=== PATIENT | male | born 1955 | race Caucasian/White ===

== ENCOUNTER 2024-01-14 16:40 | Inpatient (IN) ==
[2024-01-14] MEDS: Vancomycin 1,000 MG in NS 0.9% 250 ml 250 ML IVPB ONE (17:18)
[2024-01-14 17:19] LABS: Hematocrit 36.9 % (38-53); Hemoglobin 12.9 g/dL (13.2-16.3); Mean Corpuscular Hemoglobin 34.6 pg (27-33); Mean Corpuscular Hgb Conc 34.9 g/dL (31-36); Mean Corpuscular Volume 99.1 fL (80-97); Mean Platelet Volume 7.8 fL (7.5-11.2); Platelet Count 158 10^3/uL (150-450); Red Blood Count 3.72 10^6/uL (4.06-5.63); Red Cell Distribution Width 13.3 % (12-17)
[2024-01-14] MEDS: Lactated Ringers SEPSIS* BAG 2,180 ML IV ONE (17:22)
[2024-01-14] MEDS: Morphine 4 MG/ML VIAL (1 ml) IV ONE (17:23)
[2024-01-14] MEDS: Acetaminophen IV 1 GM/100ML 1,000 MG/100 ML BAG IV ONE (17:25)
[2024-01-14] MEDS: Piperacillin/Tazobac 3.375 BAG 3.375 GM/100 ML BAG IV ONE (17:30)
[2024-01-14 17:41] LABS: Activated Partial Thrombo Time 27.9 seconds (26.0-38.0); INR 1.23 (0.85-1.14)
[2024-01-14 17:46] LABS: High Sens Troponin Baseline 23 pg/mL (<20)
[2024-01-14 18:05] LABS: ALT 19 U/L (7-52); AST 17 U/L (13-39); Albumin 2.9 g/dL (3.2-5.2); Albumin/Globulin Ratio 0.3 (1-3); Alkaline Phosphatase 61 U/L (35-149); Anion Gap 3 mmol/L (2-16); Blood Urea Nitrogen 25 mg/dL (6-24); C Reactive Protein 381.12 mg/L (<8.01); CO2 Carbon Dioxide 30 mmol/L (22-32); Chloride 90 mmol/L (101-111); Creatine Kinase 350 U/L (10-223); Creatinine, Serum 1.26 mg/dL (0.67-1.17); Globulin 8.5 g/dL (2-4); Glucose 127 mg/dL (70-100); Potassium 4.2 mmol/L (3.5-5.0); Sodium 123 mmol/L (135-145); Total Bilirubin 0.6 mg/dL (0.2-1.0); Total Protein 11.4 g/dL (6.4-8.9); eGFR CKD-EPI 62.1 (>60)
[2024-01-14 18:09] LABS: ABS Lymphocytes 0.4 10^3/uL (1.0-4.8); ABS Monocytes 0.1 10^3/uL (0.0-1.1); ABS Neutrophils 6.5 10^3/uL (1.5-7.6); Lymphocyte % 5.1 %
[2024-01-14 18:23] LABS: Venous Bicarbonate HCO3 29.8 mmol/L (24-28)
[2024-01-14] MEDS: Iohexol 350 (CONTRAST) 500 ML MDV IV ONE (18:29)
[2024-01-14] MEDS: HYDROmorphone 1 MG/1 ML SYRINGE IV SLOW PU ONE (18:46)
[2024-01-14 18:49] LABS: High Sensitivity Troponin 1 Hr 23 pg/mL (<20)
[2024-01-14] MEDS: Droperidol 5 MG/2 ML 2 ML VIAL IV ONE (21:43)
[2024-01-14] MEDS: Enoxaparin 40 MG/0.4 ML SYR SUBCUT SCH (21:44)
[2024-01-14 22:19] LABS: Urine Appearance Clear; Urine Bilirubin Negative (Negative); Urine Blood 1+ (Negative); Urine Color Light-Yellow; Urine Glucose Negative (Negative); Urine Ketones Negative (Negative); Urine Nitrite Negative (Negative); Urine Protein Trace (Negative); Urine Specific Gravity 1.046 (1.002-1.030); Urine Urobilinogen Negative (Negative); Urine pH 5.5 (5.0-8.0)
[2024-01-14 22:28] LABS: Urine Bacteria Absent /HPF (Absent); Urine Red Blood Cell 2+(6-10/hpf) /HPF (0-Trace); Urine Squamous Epithelial Cell Present /HPF (Absent); Urine White Blood Cell Trace(0-5/hpf) /HPF (0-Trace)
[2024-01-14] MEDS ORDERED: Acetaminophen IV 1 GM/100ML 1,000 MG/100 ML BAG IV PRN (22:51)
[2024-01-14] MEDS ORDERED: HYDROmorphone 1 MG/1 ML SYRINGE IV SLOW PU PRN (22:56)
[2024-01-14] MEDS ORDERED: Azithromycin 500 mg/250 ml NS 500 MG/250 ML BAG IVPB SCH (23:00)
[2024-01-15] MEDS: cefTRIAXone 1 gm/50 mL D5W 1 GM/50 ML BAG IV SCH (00:21)
[2024-01-15] MEDS: NS 0.9% 1000 ml BAG 1,000 ML IV SCH (00:22)
[2024-01-15] MEDS: Lidocaine PATCH 5% PATCH TRANSDERM SCH (00:22)
[2024-01-15 00:23] LABS: % Iron Saturation 9 % (15-55); .Transferrin 163 mg/dL (203-362); Iron < 20 ug/dL (50-212); LDH 134 U/L (140-271); Total Iron Binding Capacity 228 mcg/dL (250-450); Unsaturated Iron Binding 208 ug/dL
[2024-01-15 00:42] LABS: Ferritin 158.1 ng/mL (24-336)
[2024-01-15 00:51] LABS: Osmolality Serum 287 mOsm/kg (275-295)
[2024-01-15 00:51] LABS: Urine Osmo 460 mOsm/kg (150-1150)
[2024-01-15 00:58] LABS: Vitamin B12 821 pg/mL (180-914)
[2024-01-15 01:08] LABS: Folate 4.98 ng/mL (5.90-24.80)
[2024-01-15 07:15] LABS: ABS Lymphocytes 0.3 10^3/uL (1.0-4.8); ABS Monocytes 0.1 10^3/uL (0.0-1.1); ABS Neutrophils 6.2 10^3/uL (1.5-7.6); ABS Nucleated RBC 0.01 10^3/ul; Hematocrit 31.8 % (38-53); Lymphocyte % 4.9 %; Mean Corpuscular Hemoglobin 34.6 pg (27-33); Mean Corpuscular Hgb Conc 34.7 g/dL (31-36); Mean Corpuscular Volume 99.9 fL (80-97); Mean Platelet Volume 7.8 fL (7.5-11.2); Nucleated Red Blood Cells % 0.1 %/100WBC (0.0-0.8); Platelet Count 127 10^3/uL (150-450); Red Blood Count 3.18 10^6/uL (4.06-5.63); Red Cell Distribution Width 13.5 % (12-17); White Blood Count 6.6 10^3/uL (3.6-10.2)
[2024-01-15] MEDS ORDERED: Sulfur Hexaflouride MICROSPHR 25 MG VIAL IV PRN (07:17)
[2024-01-15 07:27] LABS: ALT 13 U/L (7-52); AST 12 U/L (13-39); Albumin 2.1 g/dL (3.2-5.2); Albumin/Globulin Ratio 0.3 (1-3); Alkaline Phosphatase 45 U/L (35-149); Blood Urea Nitrogen 20 mg/dL (6-24); CO2 Carbon Dioxide 29 mmol/L (22-32); Calcium 8.8 mg/dL (8.6-10.3); Chloride 99 mmol/L (101-111); Creatine Kinase 230 U/L (10-223); Creatinine, Serum 1.08 mg/dL (0.67-1.17); Globulin 6.1 g/dL (2-4); Glucose 119 mg/dL (70-100); Magnesium 1.7 mg/dL (1.9-2.7); Phosphorus 3.3 mg/dL (2.5-5.0); Potassium 4.3 mmol/L (3.5-5.0); Sodium 125 mmol/L (135-145); Total Bilirubin 0.4 mg/dL (0.2-1.0); Total Protein 8.2 g/dL (6.4-8.9); eGFR CKD-EPI 74.7 (>60)
[2024-01-15 07:41] LABS: TSH Ultra Thyroid Stim Horm 1.35 mcIU/mL (0.34-5.60)
[2024-01-15 09:38] LABS: Erythrocyte Sed Rate 63 mm/Hr (0-19)
[2024-01-15] MEDS: Heparin 5000 UNITS/ML 1 mL VIAL IV SCH (09:40)
[2024-01-15] MEDS: Heparin DRIP 25,000 UNITS BAG 25,000 UNITS/250 ML BAG IV SCH (09:43)
[2024-01-15] MEDS: Azithromycin 500 mg/250 ml NS 500 MG/250 ML BAG IVPB SCH (09:45)
[2024-01-15] MEDS ORDERED: Morphine 2 MG/ML SYRINGE IV PRN (09:46)
[2024-01-15] MEDS: Morphine 2 MG/ML SYRINGE IV PRN (10:02)
[2024-01-15] MEDS: Magnesium Sulfate 2 gm BAG 2 GM/50 ML BAG IVPB ONE (10:51)
[2024-01-15] MEDS: Magnesium Sulfate IV 1GM/100ML 1 GM/100 ML BAG IV ONE (12:47)
[2024-01-15] MEDS: cefTRIAXone 2 gm/50 mL D5W 2 GM/50 ML BAG IV SCH (14:06)
[2024-01-15 16:22] LABS: Blood Urea Nitrogen 18 mg/dL (6-24); CO2 Carbon Dioxide 32 mmol/L (22-32); Calcium 8.5 mg/dL (8.6-10.3); Chloride 95 mmol/L (101-111); Creatinine, Serum 0.98 mg/dL (0.67-1.17); Glucose 123 mg/dL (70-100); Potassium 3.7 mmol/L (3.5-5.0); Sodium 126 mmol/L (135-145)
[2024-01-15] MEDS ORDERED: Azithromycin 500 mg/250 ml NS 500 MG/250 ML BAG IVPB SCH (22:00)
[2024-01-16 01:31] LABS: Urine TP Concentration 45 mg/dL
[2024-01-16 04:49] LABS: Hematocrit 31.1 % (38-53); Hemoglobin 10.5 g/dL (13.2-16.3); Mean Corpuscular Hemoglobin 33.7 pg (27-33); Mean Corpuscular Hgb Conc 33.9 g/dL (31-36); Mean Corpuscular Volume 99.4 fL (80-97); Mean Platelet Volume 7.7 fL (7.5-11.2); Platelet Count 138 10^3/uL (150-450); Red Blood Count 3.12 10^6/uL (4.06-5.63); Red Cell Distribution Width 13.4 % (12-17); White Blood Count 6.7 10^3/uL (3.6-10.2)
[2024-01-16 07:01] LABS: Blood Urea Nitrogen 18 mg/dL (6-24); CO2 Carbon Dioxide 31 mmol/L (22-32); Calcium 8.2 mg/dL (8.6-10.3); Chloride 99 mmol/L (101-111); Glucose 100 mg/dL (70-100); Magnesium 1.9 mg/dL (1.9-2.7); Potassium 3.6 mmol/L (3.5-5.0); Sodium 127 mmol/L (135-145)
[2024-01-16] MEDS: Polyethylene Glycol 3350 17 GM PACKET PO ONE (09:45)
[2024-01-16] MEDS: Furosemide 20 mg/2 ml IV VIAL IV ONE (12:15)
[2024-01-17 06:37] LABS: ABS Lymphocytes 0.4 10^3/uL (1.0-4.8); ABS Monocytes 0.2 10^3/uL (0.0-1.1); ABS Neutrophils 2.9 10^3/uL (1.5-7.6); ABS Nucleated RBC 0.01 10^3/ul; Eosinophil % 0.8 %; Hematocrit 30.4 % (38-53); Hemoglobin 10.5 g/dL (13.2-16.3); Lymphocyte % 10.7 %; Mean Corpuscular Hemoglobin 34.2 pg (27-33); Mean Corpuscular Hgb Conc 34.6 g/dL (31-36); Mean Platelet Volume 7.6 fL (7.5-11.2); Nucleated Red Blood Cells % 0.2 %/100WBC (0.0-0.8); Platelet Count 154 10^3/uL (150-450); Red Blood Count 3.07 10^6/uL (4.06-5.63); Red Cell Distribution Width 13.3 % (12-17); White Blood Count 3.5 10^3/uL (3.6-10.2)
[2024-01-17 06:56] LABS: Albumin 2.2 g/dL (3.2-5.2); Albumin/Globulin Ratio 0.4 (1-3); Calcium 7.8 mg/dL (8.6-10.3); Creatinine, Serum 0.79 mg/dL (0.67-1.17); Globulin 6.2 g/dL (2-4); Potassium 3.6 mmol/L (3.5-5.0); Total Bilirubin 0.4 mg/dL (0.2-1.0); Total Protein 8.4 g/dL (6.4-8.9); eGFR CKD-EPI 96.8 (>60)
[2024-01-17] MEDS: Lidocaine 2% PF 5 ML VIAL INJ ONE (11:17)
[2024-01-17] MEDS ORDERED: fentaNYL 100 mcg/2 ml 50 MCG/ML VIAL ONE (13:08)
[2024-01-17] MEDS ORDERED: Flumazenil 0.5 mg/5 ml 0.1 MG/ML 5 ml VIAL ONE (13:08)
[2024-01-17] MEDS ORDERED: Naloxone 0.4 mg VIAL 0.4 mg/ml 1 ml VIAL ONE (13:08)
[2024-01-17] MEDS ORDERED: Midazolam 5 mg/5 ml VIAL 1 mg/ml 5 ml VIAL (5 mg) ONE (13:09)
[2024-01-17] MEDS: Enoxaparin 80 MG/0.8 ML SYR SUBCUT ONE (15:08)
[2024-01-17] MEDS: Senna TAB 8.6 mg TAB PO PRN (17:35)
[2024-01-17] MEDS: Polyethylene Glycol 3350 17 GM PACKET PO PRN (17:35)
[2024-01-17 17:37] LABS: Kappa Free Light Chain 10.2 mg/dL; Lambda Free Light Chain, S 0.33 mg/dL
[2024-01-17] MEDS: fentaNYL 100 mcg/2 ml 50 MCG/ML VIAL IV SLOW PU ONE (20:17)
[2024-01-17] MEDS: Midazolam 10 mg/10 ml VIAL 1 mg/ml 10 ml VIAL (10 mg) IV SLOW PU ONE (20:18)
[2024-01-17] MEDS: Acetaminophen IV 1 GM/100ML 1,000 MG/100 ML BAG IV ONE (21:29)
[2024-01-18 05:25] LABS: ABS Lymphocytes 0.6 10^3/uL (1.0-4.8); ABS Monocytes 0.3 10^3/uL (0.0-1.1); ABS Neutrophils 2.2 10^3/uL (1.5-7.6); Eosinophil % 0.9 %; Hematocrit 30.4 % (38-53); Hemoglobin 10.4 g/dL (13.2-16.3); Lymphocyte % 18.6 %; Mean Corpuscular Hemoglobin 33.9 pg (27-33); Mean Corpuscular Hgb Conc 34.1 g/dL (31-36); Mean Corpuscular Volume 99.4 fL (80-97); Mean Platelet Volume 7.2 fL (7.5-11.2); Nucleated Red Blood Cells % 0.1 %/100WBC (0.0-0.8); Platelet Count 169 10^3/uL (150-450); Red Blood Count 3.06 10^6/uL (4.06-5.63); Red Cell Distribution Width 13.7 % (12-17); White Blood Count 3.1 10^3/uL (3.6-10.2)
[2024-01-18 05:53] LABS: Calcium 7.9 mg/dL (8.6-10.3); Creatinine, Serum 0.81 mg/dL (0.67-1.17); Potassium 3.9 mmol/L (3.5-5.0)
[2024-01-18] MEDS: Morphine ER 15 mg TAB ** extended release PO SCH (10:37)
[2024-01-18 15:21] LABS: Calcium 7.5 mg/dL (8.6-10.3); Creatinine, Serum 0.82 mg/dL (0.67-1.17); Potassium 3.7 mmol/L (3.5-5.0); eGFR CKD-EPI 95.7 (>60)
[2024-01-18] MEDS ORDERED: Naloxone 0.4 mg VIAL 0.4 mg/ml 1 ml VIAL IV PUSH PRN (17:50)
[2024-01-18 18:25] LABS: Urine Kappa Total Light Chain 3.05 mg/dL (<0.9000); Urine Kappa/Lambda Light Chain >4.36; Urine Lambda Total Light Chain <0.7000 mg/dL (<0.7000)
[2024-01-19 06:42] LABS: ABS Lymphocytes 0.5 10^3/uL (1.0-4.8); ABS Monocytes 0.2 10^3/uL (0.0-1.1); ABS Neutrophils 3.4 10^3/uL (1.5-7.6); Hemoglobin 11.4 g/dL (13.2-16.3); Lymphocyte % 11.7 %; Mean Corpuscular Hgb Conc 35.5 g/dL (31-36); Mean Corpuscular Volume 98.5 fL (80-97); Mean Platelet Volume 7.3 fL (7.5-11.2); Platelet Count 212 10^3/uL (150-450); Red Blood Count 3.25 10^6/uL (4.06-5.63); Red Cell Distribution Width 13.5 % (12-17); White Blood Count 4.1 10^3/uL (3.6-10.2)
[2024-01-19 07:09] LABS: Albumin 2.5 g/dL (3.2-5.2); Albumin/Globulin Ratio 0.3 (1-3); Calcium 8.2 mg/dL (8.6-10.3); Creatinine, Serum 0.69 mg/dL (0.67-1.17); Globulin 7.5 g/dL (2-4); Phosphorus 4.7 mg/dL (2.5-5.0); Potassium 4.3 mmol/L (3.5-5.0); Total Bilirubin 0.5 mg/dL (0.2-1.0); Uric Acid 4.6 mg/dL (4.4-7.6); eGFR CKD-EPI 100.8 (>60)
[2024-01-19] MEDS ORDERED: Polyethylene Glycol 3350 17 GM PACKET PO PRN (12:06)
[2024-01-19] MEDS ORDERED: Magnesium Hydroxide LIQ 30 ML UDC PO PRN (12:06)
[2024-01-19] MEDS: Magnesium Hydroxide LIQ 30 ML UDC PO SCH (13:28)
[2024-01-19] MEDS: NS 0.9% 1000 ml BAG 1,000 ML IV SCH (13:29)
[2024-01-19] MEDS: Ure-Na 15 GM POWD.PACK PO SCH (13:29)
[2024-01-19] MEDS: Senna TAB 8.6 mg TAB PO PRN (21:50)
[2024-01-20 06:18] LABS: Calcium 7.7 mg/dL (8.6-10.3); Creatinine, Serum 0.71 mg/dL (0.67-1.17); Phosphorus 4.2 mg/dL (2.5-5.0); Potassium 4.5 mmol/L (3.5-5.0); eGFR CKD-EPI 99.9 (>60)
[2024-01-20 07:02] LABS: Albumin 2.3 g/dL (3.2-5.2); Albumin/Globulin Ratio 0.3 (1-3); Globulin 7.1 g/dL (2-4); Total Bilirubin 0.5 mg/dL (0.2-1.0); Total Protein 9.4 g/dL (6.4-8.9)
[2024-01-20 07:21] LABS: Hematocrit 30.5 % (38-53); Hemoglobin 10.4 g/dL (13.2-16.3); Mean Corpuscular Hemoglobin 33.8 pg (27-33); Mean Corpuscular Volume 99.4 fL (80-97); Mean Platelet Volume 7.7 fL (7.5-11.2); Platelet Count 237 10^3/uL (150-450); Red Blood Count 3.06 10^6/uL (4.06-5.63); Red Cell Distribution Width 13.6 % (12-17); White Blood Count 5.8 10^3/uL (3.6-10.2)
[2024-01-20 08:39] LABS: ABS Lymphocytes 0.7 10^3/uL (1.0-4.8); ABS Monocytes 0.4 10^3/uL (0.0-1.1); ABS Neutrophils 4.7 10^3/uL (1.5-7.6); ABS Nucleated RBC 0.01 10^3/ul; Lymphocyte % 12.8 %; Nucleated Red Blood Cells % 0.2 %/100WBC (0.0-0.8); RBC Morphology Normal (Normal)
[2024-01-20 08:57] LABS: Osmolality Serum 283 mOsm/kg (275-295)
[2024-01-20] MEDS: NS 0.9% 1000 ml BAG 1,000 ML IV SCH (11:16)
[2024-01-20 11:24] LABS: C Reactive Protein 46.71 mg/L (<8.01)
[2024-01-21 09:23] VITALS: BP 135/82
[2024-01-26 10:32] LABS: Referral Reason elevated M spike; Result Summary Normal
[2024-01-27 10:31] LABS: BM Referral Reason elevated M spike; BM Result Summary Normal
== END 2024-01-21 17:10 | disposition home or self-care (01) | DRG 871 ==
LOC: ED 16:40 → SUATTDRO 21:15 → EDHOLD 21:15 → MED 23:09
PROVIDERS: ADMIT Internal Medicine; ATTEND Internal Medicine